=== PATIENT | male | born 1960 | race Caucasian/White ===

== ENCOUNTER 2016-08-03 02:56 | Emergency (ER) | payer OTHER ==
[~2016-08-03] VITALS: Ht 188 cm; Wt 116.7 kg
[~2016-08-03 02:56] MED LIST: ADVAIR HFA120 INHALA IH; AMARYL1 MG PO; AMBIEN5 MG PO; AMITRIPTYLINE H10 MG PO; AMITRIPTYLINE H25 MG PO; AMLODIPINE BESY10 MG PO; AMLODIPINE BESYL5 MG; AMLODIPINE BESYL5 MG PO; AMOXICILLIN500 MG PO; ASPIR 8181 M1 PO; ASPIR-LOW81 MG PO; ASPIR-TRIN325 M1 PO; ASPIRIN325 MG PO; ATIVAN1 MG PO; ATORVASTATIN CA40 MG PO; Ambien PO; Amoxicillin PO; Antivert PO; Aspirin E.C. PO; BAYER BACK & B1 EACH PO; BENTYL10 MG PO; BENZONATATE100 MG PO; BIAXIN XL500 MG PO; BUTALB-APAP-CA1 EACH PO; Bentyl PO; CLARITIN10 M3 PO; CLOPIDOGREL75 MG PO; DICYCLOMINE HCL20 MG PO; DILAUDID2 MG PO; DIVALPROEX SOD500 M1 PO; DOXYCYCLINE HY100 MG PO; DULERA 100 MCG/13 GM IH; DUONEB 2.5-0.5 M3 ML AEROSOL; ELAVIL25 MG PO; EXCEDRIN EXTRA1 EACH PO; EXCEDRIN MIGRA1 EAC3 PO; Elavil PO; FAMOTIDINE20 MG PO; FENTANYL1 EAC5 TD; FIORICET 50-301 EACH PO; FIORICET,ESG1 TABLET PO; FLEXERIL10 MG PO; FLONASE16 G1 BOTH NARES; FLUTICASONE PRO16 GM BOTH NARES; GABAPENTIN100 MG PO; GABAPENTIN600 MG PO; GLIMEPIRIDE1 MG PO; GLUCOPHAGE XR,500 MG PO; GLUCOPHAGE1000 MG PO; GLUCOPHAGE500 MG PO; GRALISE300 MG PO; HYDROCODON-ACE1 EAC7 PO; HYDROMORPHONE HC2 MG PO; IMITREX100 MG PO; IMITREX25 MG PO; INDERAL40 MG PO; LEVAQUIN750 MG PO; LEVEMIR FL100 UNIT/1 SC; LIPITOR40 MG PO; LORATADINE10 M2 PO; Lipitor PO; MECLIZINE HCL12.5 M1 PO; MECLIZINE HCL25 MG PO; METFORMIN HCL500 M1 PO; METFORMIN HCL500 MG; METFORMIN HCL500 MG PO; MOBIC7.5 MG PO; MOTRIN600 MG PO; NAPROSYN-EC500 MG PO; NAPROXEN500 M1 PO; NEURONTIN300 MG PO; NITROSTAT0.4 MG SL; NORVASC10 MG PO; NORVASC5 M1 PO; NORVASC5 MG PO; NOVOLOG PE100 UNITS/ SC; Norvasc PO; NovoLOG, HumaLOG SC; OMEPRAZOLE20 MG PO; OMEPRAZOLE40 M1 PO; ONDANSETRON HCL4 MG PO; PANTOPRAZOLE SO40 MG PO; PREDNISONE10 MG PO; PREDNISONE20 MG PO; PREDNISONE50 MG PO; PREVACID30 MG PO; PRILOSEC OTC20 MG PO; PRILOSEC20 MG PO; PRILOSEC40 MG PO; PROAIR HFA8.5 GM IH; PROMETHAZINE HC25 M1 PO; PROTONIX40 MG PO; Prevacid PO; SPIRIVA1 INHALATI IH; TIZANIDINE HCL4 M1 PO; TIZANIDINE HCL4 MG PO; TOFRANIL25 MG PO; TOPAMAX25 MG PO; TOPIRAMATE25 MG PO; TOPIRAMATE50 MG PO; TRAMADOL HCL50 MG PO; ULTRAM50 MG PO; UNABLEOBTAIN; VALIUM10 MG PO; VALIUM5 MG PO; VALPROIC ACID250 MG PO; VENTOLIN HFA18 GM IH; VITAMIN D250000 UNIT PO; VITAMIN D5000 UNIT PO; WELCHOL625 MG PO; ZOFRAN ODT4 MG PO; ZOFRAN ODT8 MG PO; ZOFRAN4 MG PO; ZOLPIDEM TARTRAT5 MG PO
[2016-08-03 04:09] LABS: EOSINOPHIL (%) 3.6 % (0-5); EOSINOPHIL COUNT 0.1 K/uL (0-0.3); HEMATOCRIT 39.2 % (38.0-50.0); IMMATURE GRANULOCYTE (%) 0.3 % (0.0-0.7); IMMATURE GRANULOCYTE COUNT 0.1 K/uL; LYMPHOCYTE COUNT 1.1 K/uL (1.0-2.8); MCH 28.5 PG (29.0-34.0); MCHC 33.9 G/DL (30.0-36.0); MCV 83.9 FL (86-99); MEAN PLAT.VOLUME 11.5 uM^3 (9.0-12.4); MONOCYTE (%) 5.7 % (3-12); MONOCYTE COUNT 0.2 K/uL (0-0.8); NEUTROPHIL (%) 62.7 % (45-76); NEUTROPHIL COUNT 2.4 K/uL (1.8-6.4); PLATELET COUNT 95 K/uL (156-360); RBC DIS.WIDTH-CV 14.2 % (11.8-14.6); RBC DIS.WIDTH-SD 42.5 % (39-53); RED BLOOD COUNT 4.67 M/uL (4.00-5.50); WHITE BLOOD COUNT 3.9 K/uL (4.1-10.2)
[2016-08-03 04:22] LABS: CHLORIDE 105 mEq/L (99-109); POTASSIUM 3.7 mEq/L (3.7-5.4); SODIUM 140 mEq/L (136-147)
[2016-08-03 04:24] LABS: GLUCOSE 186 mg/dL (70-99)
[2016-08-03 04:25] LABS: ANION GAP 10 MEQ/L (2-14)
[2016-08-03 04:26] LABS: TOTAL BILIRUBIN 0.8 mg/dL (0.0-1.0)
[2016-08-03 04:27] LABS: SERUM ETHYL ALCOHOL < 10 mg/dL
[2016-08-03 04:28] LABS: ALKALINE PHOSPHATASE 111 IU/L (3-129); GFR ESTIMATE (CALCULATED) > 59 mL/min/
[2016-08-03 04:29] LABS: UREA NITROGEN (BUN) 9 mg/dL (9-23)
[2016-08-03 04:31] LABS: LIPASE 25 U/L (1.0-51.0)
[2016-08-03 04:32] LABS: TROP-I INTERPRETATION NEGATIVE; TROPONIN-I < 0.01 ng/mL (0.0-0.30)
[2016-08-03 05:43] LABS: ADD MIUA? NO; BILIRUBIN NEGATIVE; BLOOD NEGATIVE; COLOR YELLOW ((YELLOW)); GLUCOSE (STRIP) 50; KETONES NEGATIVE; LEUKOCYTES NEGATIVE; NITRITE NEGATIVE; PROTEIN (STRIP) NEGATIVE; SPECIFIC GRAVITY 1.019 (1.000-1.030); UCUL ADDED? NO; UROBILINOGEN 0.2 MG/DL (0.2-1.0)
[2016-08-03] MEDS ORDERED: ZOFRAN8 MG PO (06:00)
[2016-08-03 06:45] LABS: INTER. NORMALIZED RATIO 1.1; PROTHROMBIN TIME 11.4 (9.2-11.2); PTT 26.5 (25-32)
[2016-08-03 08:38] VITALS: BP 139/81
[2016-08-03 08:38] LABS: INTERNAL CONTROL VALID? YES; MONOSPOT (MONONUCLEOSIS SEROL) NEGATIVE
== END 2016-08-03 08:40 | disposition home or self-care (01) ==
LOC: EME 02:56
PROVIDERS: Emergency Medicine
DX: K74.60 Unspecified cirrhosis of liver (principal); E86.0 Dehydration; D72.819 Decreased white blood cell count, unspecified; D69.6 Thrombocytopenia, unspecified; E72.20 Disorder of urea cycle metabolism, unspecified; R10.11 Right upper quadrant pain; I10 Essential (primary) hypertension; G89.29 Other chronic pain; E11.9 Type 2 diabetes mellitus without complications; J44.9 Chronic obstructive pulmonary disease, unspecified; E78.5 Hyperlipidemia, unspecified; Z87.442 Personal history of urinary calculi; K21.9 Gastro-esophageal reflux disease without esophagitis; Z79.84 Long term (current) use of oral hypoglycemic drugs; Z87.891 Personal history of nicotine dependence
CPT/HCPCS: 74177; 80053; 81003; 82140; 83605; 83690; 84484; 85025; 85610; 85730; 86308; 87040; 93005; 99281; 99285; G0480; J2405; J2765; J3010; J7030; S0028

== ENCOUNTER → 2016-09-22 | Outpatient (CLI) | payer OTHER ==
[~2016-09-22] MED LIST changes: +ZOFRAN8 MG PO
== END | disposition home or self-care (01) ==
LOC: NUC 07:12
DX: R68.81 Early satiety (principal)
CPT/HCPCS: 78264; A9541

== ENCOUNTER 2016-10-07 08:53 | Day surgery (SDC) | payer OTHER ==
[~2016-10-07] VITALS: Ht 188 cm; Wt 114.8 kg
[~2016-10-07 08:53] MED LIST changes: +DILAUDID4 MG PO
[2016-10-07 09:25] LABS: POINT-OF-CARE METER ID UU14174212
== END 2016-10-07 10:43 | disposition home or self-care (01) ==
LOC: PAIN 08:53 → SDC 10:00 → PAIN 10:43
PROVIDERS: Anesthesiology Pain Medicine
PROC: 015B3ZZ Destruction of Lumbar Nerve, Percutaneous Approach (ICD-10-PCS; principal; 2016-10-07)
DX: M47.26 Other spondylosis with radiculopathy, lumbar region (principal); F41.9 Anxiety disorder, unspecified; G89.29 Other chronic pain; M51.26 Other intervertebral disc displacement, lumbar region; N28.9 Disorder of kidney and ureter, unspecified; J30.9 Allergic rhinitis, unspecified; I10 Essential (primary) hypertension; E78.5 Hyperlipidemia, unspecified; I69.359 Hemiplegia and hemiparesis following cerebral infarction affecting unspecified side; Z68.32 Body mass index [BMI] 32.0-32.9, adult; Z87.891 Personal history of nicotine dependence; R73.09 Other abnormal glucose; Z79.84 Long term (current) use of oral hypoglycemic drugs; Z88.8 Allergy status to other drugs, medicaments and biological substances
CPT/HCPCS: 82948; J1030; J2250; J3010; S0020

== ENCOUNTER 2016-10-14 09:20 | Day surgery (SDC) | payer OTHER ==
[~2016-10-14] VITALS: Ht 188 cm; Wt 114.8 kg
[2016-10-14 10:09] LABS: POINT-OF-CARE METER ID UU14174212
== END 2016-10-14 11:15 | disposition home or self-care (01) ==
LOC: PAIN 09:20 → SDC 10:00 → PAIN 11:15
PROVIDERS: Anesthesiology Pain Medicine
DX: M51.16 Intervertebral disc disorders with radiculopathy, lumbar region (principal); I10 Essential (primary) hypertension; K21.9 Gastro-esophageal reflux disease without esophagitis; E11.9 Type 2 diabetes mellitus without complications; J44.9 Chronic obstructive pulmonary disease, unspecified; E78.5 Hyperlipidemia, unspecified; J43.9 Emphysema, unspecified; K76.0 Fatty (change of) liver, not elsewhere classified; E66.9 Obesity, unspecified; Z68.32 Body mass index [BMI] 32.0-32.9, adult; I69.359 Hemiplegia and hemiparesis following cerebral infarction affecting unspecified side; F41.8 Other specified anxiety disorders; Z87.891 Personal history of nicotine dependence; R00.0 Tachycardia, unspecified; Z79.84 Long term (current) use of oral hypoglycemic drugs; Z79.891 Long term (current) use of opiate analgesic; Z79.899 Other long term (current) drug therapy
CPT/HCPCS: 82948; J1030; J2250; J3010; S0020

== ENCOUNTER 2016-10-15 00:41 | Emergency (ER) | payer OTHER ==
[~2016-10-15] VITALS: Ht 188 cm; Wt 113.9 kg
[2016-10-15 01:28] LABS: HEMATOCRIT 41.1 % (38.0-50.0); MCH 28.2 PG (29.0-34.0); MCHC 33.1 G/DL (30.0-36.0); MCV 85.1 FL (86-99); MEAN PLAT.VOLUME 11.2 uM^3 (9.0-12.4); PLATELET COUNT 88 K/uL (156-360); RBC DIS.WIDTH-CV 13.5 % (11.8-14.6); RBC DIS.WIDTH-SD 42.3 % (39-53); RED BLOOD COUNT 4.83 M/uL (4.00-5.50); WHITE BLOOD COUNT 5.9 K/uL (4.1-10.2)
[2016-10-15 01:36] LABS: CARBON DIOXIDE (BICARBONATE) 26.7 MEQ/L (20-31)
[2016-10-15 01:37] LABS: CHLORIDE 102 mEq/L (99-109); POTASSIUM 4.4 mEq/L (3.7-5.4); SODIUM 134 mEq/L (136-147)
[2016-10-15 01:41] LABS: ANION GAP 11 MEQ/L (2-14); TOTAL BILIRUBIN 0.8 mg/dL (0.0-1.0)
[2016-10-15 01:43] LABS: ALKALINE PHOSPHATASE 113 IU/L (3-129); GFR ESTIMATE (CALCULATED) > 59 mL/min/
[2016-10-15 01:44] LABS: UREA NITROGEN (BUN) 12 mg/dL (9-23)
[2016-10-15 01:46] LABS: LIPASE 29 U/L (1.0-51.0)
[2016-10-15 01:49] LABS: TROP-I INTERPRETATION NEGATIVE; TROPONIN-I < 0.01 ng/mL (0.0-0.30)
[2016-10-15 01:51] LABS: GLUCOSE 639 mg/dL (70-99)
[2016-10-15 03:14] LABS: ADD MIUA? NO; BILIRUBIN NEGATIVE; BLOOD NEGATIVE; COLOR STRAW ((YELLOW)); GLUCOSE (STRIP) >=500; KETONES NEGATIVE; LEUKOCYTES NEGATIVE; NITRITE NEGATIVE; PROTEIN (STRIP) NEGATIVE; SPECIFIC GRAVITY 1.023 (1.000-1.030); UCUL ADDED? NO; UROBILINOGEN 0.2 MG/DL (0.2-1.0)
[2016-10-15 03:25] LABS: POINT-OF-CARE METER ID UU14100415
[2016-10-15 05:13] LABS: POINT-OF-CARE METER ID UU14100415
[2016-10-15 05:28] VITALS: BP 134/81
[2016-10-16 13:01] LABS: POINT-OF-CARE METER ID UU13113778
== END 2016-10-15 05:29 | disposition home or self-care (01) ==
LOC: EME 00:41
PROVIDERS: Emergency Medicine
DX: E11.65 Type 2 diabetes mellitus with hyperglycemia (principal); R51 Headache; E86.0 Dehydration; Z79.84 Long term (current) use of oral hypoglycemic drugs; I10 Essential (primary) hypertension; Z87.891 Personal history of nicotine dependence; Z90.49 Acquired absence of other specified parts of digestive tract
CPT/HCPCS: 80053; 81003; 82010; 82803; 82948; 83690; 83930; 84484; 85027; 93005; 99281; 99285; J0780; J1200; J1885; J2405; J7030

== ENCOUNTER 2017-01-21 14:55 | Emergency (ER) | payer OTHER ==
[~2017-01-21] VITALS: Ht 188 cm; Wt 111.4 kg
[2017-01-21] MEDS ORDERED: ONDANSETRON HCL4 MG PO (15:55)
[2017-01-21] MEDS ORDERED: HYDROMORPHONE HC8 MG PO (15:55)
[2017-01-21] MEDS ORDERED: LOSARTAN POTASS50 MG PO (15:58)
[2017-01-21 16:09] LABS: HEMATOCRIT 40.7 % (38.0-50.0); MCHC 32.7 G/DL (30.0-36.0); MCV 85.7 FL (86-99); MEAN PLAT.VOLUME 11.7 uM^3 (9.0-12.4); PLATELET COUNT 106 K/uL (156-360); RBC DIS.WIDTH-CV 13.1 % (11.8-14.6); RBC DIS.WIDTH-SD 41.1 % (39-53); RED BLOOD COUNT 4.75 M/uL (4.00-5.50); WHITE BLOOD COUNT 5.1 K/uL (4.1-10.2)
[2017-01-21 16:20] LABS: CHLORIDE 106 mEq/L (99-109); POTASSIUM 4.2 mEq/L (3.7-5.4); SODIUM 141 mEq/L (136-147)
[2017-01-21 16:21] LABS: MAGNESIUM 1.8 mg/dL (1.3-2.7)
[2017-01-21 16:22] LABS: GLUCOSE 107 mg/dL (70-99)
[2017-01-21 16:24] LABS: ANION GAP 9 MEQ/L (2-14); TOTAL BILIRUBIN 0.9 mg/dL (0.0-1.0)
[2017-01-21 16:26] LABS: ALKALINE PHOSPHATASE 106 IU/L (3-129); GFR ESTIMATE (CALCULATED) > 59 mL/min/
[2017-01-21 16:27] LABS: UREA NITROGEN (BUN) 8 mg/dL (9-23)
[2017-01-21 16:29] LABS: CREATINE KINASE 185 IU/L (1-294); TOTAL CK 185 IU/L (1-294)
[2017-01-21 16:31] LABS: TROP-I INTERPRETATION NEGATIVE; TROPONIN-I < 0.01 ng/mL (0.0-0.30)
[2017-01-21 16:35] LABS: CK-MB 1.4 ng/mL (0.0-4.9)
[2017-01-21 21:02] LABS: CREATINE KINASE 160 IU/L (1-294); TOTAL CK 160 IU/L (1-294)
[2017-01-21 21:04] LABS: TROP-I INTERPRETATION NEGATIVE; TROPONIN-I < 0.01 ng/mL (0.0-0.30)
[2017-01-21 21:10] LABS: TROP-I INTERPRETATION NEGATIVE; TROPONIN-I < 0.01 ng/mL (0.0-0.30)
[2017-01-21] MEDS ORDERED: PRILOSEC OTC20 MG PO (21:55)
[2017-01-21] MEDS ORDERED: CARAFATE1 GM PO (21:55)
[2017-01-21 22:37] VITALS: BP 146/75
== END 2017-01-21 22:40 | disposition home or self-care (01) ==
LOC: EME 14:55
PROVIDERS: Emergency Medicine
DX: G43.909 Migraine, unspecified, not intractable, without status migrainosus (principal); R55 Syncope and collapse; M79.603 Pain in arm, unspecified; E11.9 Type 2 diabetes mellitus without complications; K21.9 Gastro-esophageal reflux disease without esophagitis; I10 Essential (primary) hypertension; Z87.442 Personal history of urinary calculi; Z88.6 Allergy status to analgesic agent; Z87.891 Personal history of nicotine dependence; Z79.84 Long term (current) use of oral hypoglycemic drugs
CPT/HCPCS: 80053; 82550; 82550 91; 82553; 83735; 84484; 85027; 93005; 99281; 99285; J1885; J2765; J7030

== ENCOUNTER 2017-12-20 21:46 | Emergency (ER) | payer OTHER ==
[~2017-12-20] VITALS: Ht 188 cm; Wt 110.0 kg
[~2017-12-20 21:46] MED LIST changes: +CARAFATE1 GM PO; +HYDROMORPHONE HC8 MG PO; +LOSARTAN POTASS50 MG PO
[2017-12-20 23:00] LABS: BASOPHIL (%) 0.3 % (0-1); EOSINOPHIL (%) 2.8 % (0-5); EOSINOPHIL COUNT 0.1 K/uL (0-0.3); HEMATOCRIT 31.3 % (38.0-50.0); HEMOGLOBIN 9.4 G/DL (12.5-16.6); LYMPHOCYTE (%) 19.9 % (15-42); LYMPHOCYTE COUNT 0.7 K/uL (1.0-2.8); MCH 21.9 PG (29.0-34.0); MCV 72.8 FL (86-99); MONOCYTE (%) 6.4 % (3-12); MONOCYTE COUNT 0.2 K/uL (0-0.8); NEUTROPHIL (%) 70.6 % (45-76); NEUTROPHIL COUNT 2.3 K/uL (1.8-6.4); PLATELET COUNT 100 K/uL (156-360); RBC DIS.WIDTH-CV 17.5 % (11.8-14.6); RBC DIS.WIDTH-SD 45.4 % (39-53); WHITE BLOOD COUNT 3.3 K/uL (4.1-10.2)
[2017-12-20 23:02] LABS: ALBUMIN 3.9 g/dL (3.2-4.8)
[2017-12-20 23:03] LABS: CHLORIDE 110 mEq/L (99-109); SODIUM 143 mEq/L (136-147)
[2017-12-20 23:05] LABS: GLUCOSE 135 mg/dL (70-99); TOTAL PROTEIN 6.6 g/dL (6.4-8.3)
[2017-12-20 23:08] LABS: ALKALINE PHOSPHATASE 109 IU/L (3-129)
[2017-12-20 23:09] LABS: CREATININE 1.2 mg/dL (0.6-1.3); GFR ESTIMATE (CALCULATED) > 59 mL/min/ (58.99-99999)
[2017-12-20 23:10] LABS: AST (GOT) 35 IU/L (2-34); UREA NITROGEN (BUN) 8 mg/dL (9-23)
[2017-12-20 23:12] LABS: ALT (GPT) 17 IU/L (3-49)
[2017-12-20 23:13] LABS: TROP-I INTERPRETATION NEGATIVE; TROPONIN-I < 0.01 ng/mL (0.0-0.30)
[2017-12-21 00:19] LABS: APPEARANCE CLEAR ((CLEAR)); BILIRUBIN NEGATIVE; BLOOD NEGATIVE; COLOR YELLOW ((YELLOW)); GLUCOSE (STRIP) NEGATIVE; KETONES NEGATIVE; LEUKOCYTES NEGATIVE; NITRITE NEGATIVE; PROTEIN (STRIP) NEGATIVE; SPECIFIC GRAVITY 1.014 (1.000-1.030); UCUL ADDED? NO; UROBILINOGEN 0.2 MG/DL (0.2-1.0)
[2017-12-21 02:29] VITALS: BP 155/93
== END 2017-12-21 02:29 | disposition home or self-care (01) ==
LOC: EME 21:46
PROVIDERS: Emergency Medicine
DX: R53.1 Weakness (principal); R42 Dizziness and giddiness; Z91.81 History of falling; I10 Essential (primary) hypertension; J44.9 Chronic obstructive pulmonary disease, unspecified; E11.9 Type 2 diabetes mellitus without complications; D64.9 Anemia, unspecified; R00.0 Tachycardia, unspecified; Z79.84 Long term (current) use of oral hypoglycemic drugs; Z88.5 Allergy status to narcotic agent; Z88.1 Allergy status to other antibiotic agents; Z88.8 Allergy status to other drugs, medicaments and biological substances; Z87.891 Personal history of nicotine dependence
CPT/HCPCS: 70450; 71046; 71275; 80053; 81003; 84484; 85025; 93005; 99281; 99285; J7030